=== PATIENT | male | born 1970 ===

== ENCOUNTER 2018-08-27 15:59 | Inpatient (IN) | payer OTHER ==
[2018-08-27] MEDS ORDERED: Nicardipine 20 MG/200 ML 20 MG/200 ML BAG IV PRN (17:52)
[2018-08-27 18:15] LABS: BASO # 0.05 K/mm3 (0.0-2.0); BASO % 0.5 % (0.0-3.0); EOS # 0.3 (0.0-0.7); EOS % 2.7 % (1.5-5.0); HEMOGLOBIN 12.2 g/dL (14.0-18.0); LYMPH # 1.5 (1.2-3.4); LYMPH % 16.3 % (22.0-35.0); MEAN CELL VOLUME 91.7 fl (80.0-105.0); MEAN CORPUSCULAR HGB CONC 31.6 g/dl (31.0-37.0); MEAN PLATELET VOLUME 9.8 fl (7.0-11.0); MONO # 0.4 (0.1-0.6); MONO % 3.8 % (1.0-6.0); RBC 4.21 10^6/uL (3.5-6.1); RED CELL DISTRIBUTION WIDTH 14.7 % (11.5-14.5); WHITE BLOOD COUNT 9.4 10^3/uL (4.5-11.0)
[2018-08-27 18:24] LABS: ALB/GLOB RATIO 1.2 (1.1-1.8); ALBUMIN 3.2 g/dL (3.0-4.8); CALCIUM 8.6 mg/dL (8.4-10.5)
[2018-08-27 18:29] LABS: INR 0.97; PROTHROMBIN TIME 10.8 SECONDS (9.4-12.5)
[2018-08-27 18:32] LABS: TROPONIN I 0.07 ng/mL
[2018-08-27 18:53] LABS: PH,URINE 6.5 (4.7-8.0); URINE BILIRUBIN NEGATIVE (NEGATIVE); URINE BLOOD SMALL (NEGATIVE); URINE GLUCOSE (UA) NEGATIVE (NEGATIVE); URINE LEUKOCYTE ESTERASE NEGATIVE Leu/uL (NEGATIVE); URINE PROTEIN 100 mg/dL (<30 mg/dL); URINE UROBILINOGEN 0.2 E.U./dL (<1 E.U./dL)
[2018-08-27 18:55] LABS: URINE APPEARANCE CLEAR (CLEAR); URINE COLOR YELLOW (YELLOW)
[2018-08-27 19:07] LABS: URINE BACTERIA FEW /hpf
--- NOTE | 2018-08-27 19:19 | ED PDOC ---
Arrival/HPI - General Chief Complaint: Lower Extremity Problem/Injury Time Seen by Provider: 08/27/18 16:39 Historian: Patient - History of Present Illness Narrative History of Present Illness (Text): 08/27/18 16:39 Patient is a 48 year old male, with a past medical history of diabetes, who presents to the emergency department complaining of worsening bilateral feet swelling since 3 to 4 weeks. Patient informs of burning sensation when putting pressure on feet. Patient notes lower extremity swelling up to thighs bilaterally. Patient notes swelling began with development of ingrown great toenail on left foot and bilateral lower extremity ulcers. Patient has no history of previous symptoms. Patient informs of shortness of breath and foreign body sensation in throat when sleeping. Patient also notes secondary complaint o f blurry vision bilaterally, worse in left eye for greater than one month. Patient notes last known A1C level measured one month ago read high but is unsure of exact value. Patient denies any fevers, chills, headache, dizziness, chest pain, dyspnea on exertion, cough, abdominal pain, nausea, vomiting, diarrhea, back pain, neck pain, dysuria, hematuria, dark/bloody stool, or any other complaint. Time/Duration: < month (3-4 weeks) Symptom Onset: Gradual Symptom Course: Worsening Activities at Onset: Light Context: Home Past Medical History - Provider Review Nursing Documentation Reviewed: Yes - Infectious Disease Hx of Infectious Diseases: None - Cardiac Hx Cardiac Disorders: Yes Hx Hypertension: Yes - Pulmonary Hx Asthma: Yes - Neurological Hx Neurological Disorder: No - Endocrine/Metabolic Hx Diabetes Mellitus Type 2: Yes - Hematological/Oncological Hx Blood Disorders: No - Musculoskeletal/Rheumatological Hx Musculoskeletal Disorders: No - Gastrointestinal Hx Gastrointestinal Disorders: No - Psychiatric Hx Substance Use: Yes - Anesthesia Hx Anesthesia Reactions: No Family/Social History - Physician Review Nursing Documentation Reviewed: Yes Family/Social History: Unknown Family HX Smoking Status: Unknown If Ever Smoked Hx Alcohol Use: Yes Frequency of alcohol use: Socially Hx Substance Use: Yes Substance used: marijuana Allergies/Home Meds Allergies/Adverse Reactions: Allergies No Known Allergies Allergy (Verified 08/27/18 17:18) Home Medications: Home Meds Medication Instructions Recorded Confirmed Alogliptin Yuan/Pioglitazone 1 each PO DAILY 08/27/18 08/27/18 [Alogliptin-Pioglit 25-15 mg Tb] Enalapril Maleate [Vasotec] 20 mg PO DAILY 08/27/18 08/27/18 Gabapentin [Neurontin] 600 mg PO TID 08/27/18 08/27/18 Meloxicam 15 mg PO DAILY 08/27/18 08/27/18 MetFORMIN [glucOPHAGE] 1,000 mg PO BID 08/27/18 08/27/18 Review of Systems - Review of Systems Constitutional: absent: Fevers, Other (chills) Eyes: Vision Changes (blurry vision bilaterally worse in left eye ) ENT: Other (foreign body sensation when sleeping) Respiratory: SOB (when sleeping). absent: Cough Cardiovascular: absent: Chest Pain Gastrointestinal: absent: Abdominal Pain, Diarrhea, Nausea, Vomiting, Hematochezia Genitourinary Male: absent: Dysuria, Hematuria Musculoskeletal: Other (bilateral feet swelling, lower extremity swelling up to thigh). absent: Back Pain, Neck Pain Skin: Ulcer (bilateral lower extremity ulcers) Neurological: absent: Headache, Dizziness Physical Exam - Physical Exam Narrative Physical Exam (Text): 08/27/18 16:23 Gen: VS reviewed, ashen/pale appearing. alert, mild distress. ENT: normal pharynx. Eye: EOMI, PERRL. Neck: no JVD, supple, no adenopathy. CV: regular rate, regular rhythm, no rubs, no murmur, no gallops, S1, S2, pulses equal and strong. Pulm: no distress, clear to auscultation, no wheeze, no rhonchi, breath sounds equal, no rales. Abd: soft, nontender, no guarding, no rebound, no rigidity, normal bowel sounds. Ext: pitting edema bilateral lower extremities. Excoriations on legs and feet bilaterally. Left ingrown toenail Skin: good color, no rash, no cyanosis. Psych: responds appropriately to questions, normal affect. Neuro: oriented x 3, CN2-12 intact grossly, motor intact, sensation intact. Vital Signs Reviewed: Yes Vital Signs Temp Pulse Resp BP Pulse Ox 08/27/18 18:19 98 H 18 177/96 H 98 08/27/18 18:18 196/108 H 08/27/18 16:33 98.5 F 101 H 20 201/122 H 98 Temperature: Afebrile Blood Pressure: Hypertensive Pulse: Tachycardic Respiratory Rate: Normal Appearance: Positive for: Non-Toxic, Comfortable, Ill-Appearing (ashen/pale) Pain Distress: None Mental Status: Positive for: Alert and Oriented X 3 Medical Decision Making ED Course and Treatment: 08/27/18 18:25 Bloop pressure reads 177/96 after dose of lasix. Will cancel cardene drip. 08/27/18 19:[address] ware to the hospitalist service. pt to be admitted for new onset chf, no respiratory distress but will require diuresis. - Lab Interpretations Lab Results: PT 10.8 SECONDS (9.4-12.5) 08/27/18 17:55 INR 0.97 08/27/18 17:55 APTT 33.0 Seconds (26.9-38.3) 08/27/18 17:55 Troponin I 0.07 ng/mL 08/27/18 17:55 NT-Pro-B Natriuret Pep 5460 pg/mL (0-450) H 08/27/18 17:55 Total Bilirubin 0.4 mg/dL (0.2-1.3) 08/27/18 17:55 AST 73 U/L (17-59) H 08/27/18 17:55 ALT 57 U/L (7-56) H 08/27/18 17:55 Alkaline Phosphatase 75 U/L (38-126) 08/27/18 17:55 Total Protein 5.9 g/dL (5.8-8.3) 08/27/18 17:55 Albumin 3.2 g/dL (3.0-4.8) 08/27/18 17:55 Globulin 2.7 gm/dL 08/27/18 17:55 Albumin/Globulin Ratio 1.2 (1.1-1.8) 08/27/18 17:55 Urine Color Yellow (YELLOW) 08/27/18 18:40 Urine Appearance Clear (CLEAR) 08/27/18 18:40 Urine pH 6.5 (4.7-8.0) 08/27/18 18:40 Ur Specific [place] 1.025 (1.005-1.035) 08/27/18 18:40 Urine Protein 100 mg/dL (<30 mg/dL) H 08/27/18 18:40 Urine Glucose (UA) Negative mg/dL (NEGATIVE) 08/27/18 18:40 Urine Ketones Negative mg/dL (NEGATIVE) 08/27/18 18:40 Urine Blood Small (NEGATIVE) H 08/27/18 18:40 Urine Nitrate Negative (NEGATIVE) 08/27/18 18:40 Urine Bilirubin Negative (NEGATIVE) 08/27/18 18:40 Urine Urobilinogen 0.2 E.U./dL (<1 E.U./dL) 08/27/18 18:40 Ur Leukocyte Esterase Negative Anant/uL (NEGATIVE) 08/27/18 18:40 - RAD Interpretation Narrative RAD Interpretations (Text): 08/27/18 19:10 Spoke to [id number] preliminary US negative for bilateral lower extremity DVT. Radiology Orders: 08/27/18 17:52 CHEST PORTABLE [RAD] Stat 08/27/18 17:54 DUPLEX LOWER EXTRM VEIN BILAT [US] Stat - EKG Interpretation EKG Interpretation (Text): 08/27/18 18:12 Reviewed EKG, shows: NSR at 98 BPM. Normal QRS. Prolonged QT. Low Voltage. Poor R wave progression. Interpreted by ED Physician: Yes Type: 12 lead EKG - Medication Orders Current Medication Orders: Discontinued Medications Furosemide (Lasix) 60 mg IVP STAT STA Stop: 08/27/18 17:58 Last Admin: 08/27/18 18:18 Dose: 60 mg MAR Blood Pressure Document 08/27/18 18:18 SS (Rec: 08/27/18 18:19 SS [id number]) Blood Pressure Blood Pressure (100/60-150/90) 196/108 IVP Administration Document 08/27/18 18:18 SS (Rec: 08/27/18 18:19 SS [id number]) Charges for Administration # of IVP Administrations 1 - Scribe Statement The provider has reviewed the documentation as recorded by the Scribe Stuart Mendoza All medical record entries made by the Scribe were at my direction and personally dictated by me. I have reviewed the chart and agree that the record accurately reflects my personal performance of the history, physical exam, medical decision making, and the department course for this patient. I have also personally directed, reviewed, and agree with the discharge instructions and disposition. Disposition/Present on Arrival - Present on Arrival Any Indicators Present on Arrival: No History of DVT/PE: No History of Uncontrolled Diabetes: No Urinary Catheter: No History of Decub. Ulcer: No History Surgical Site Infection Following: None - Disposition Have Diagnosis and Disposition been Completed?: Yes Diagnosis: CHF (congestive heart failure) Disposition: HOSPITALIZED Disposition Time: 19:41 Patient Plan: Admission Patient Problems: Current Active Problems Problem Status Onset Diabetic neuropathy Acute Diabetes mellitus Acute Hypertension Acute Condition: GUARDED Discharge Instructions (ExitCare): Heart Failure (ED) Forms: [facility] (Lao)
[2018-08-27] MEDS ORDERED: Labetalol 5 mg/ml Inj 20ML IV STA (20:47)
[2018-08-27] MEDS ORDERED: Dextrose 50% SYRINGE Inj (50 ml) IV PRN (22:07)
--- NOTE | 2018-08-27 22:33 | CP.PCM.HP ---
<ZoltanLamonte - Last Filed: 08/28/18 00:05> History of Present Illness - History of Present Illness History of Present Illness: PGY-1 History and Physical for Dr. Serna cc: worsening leg edema, sob Patient is a 48 year old male with past medical history of uncontrolled DM, HTN, asthma presenting to ED with worsening b/l lower extremity edema for the past 3-4 weeks with associated numbness, tingling, and burning sensation. He comes in now for evaluation because burning sensation and swelling has been too much to tolerate. He also endorses pruritis to his anterior shins bilaterial, with multiple excoriations/ulcerations noted to his lower limbs. Patient admits to increased scratching due to itching, also states some findings are due to easy bruising. Patient also endorses intermittent blurry vision and polyuria. He denies checking his blood sugar levels at home but states that they were elevated the last time he went to see his doctor a few months ago. Patient also endorses shortness of breath with exertion, particularly when climbing up flights of stairs, as well as orthopnea. He denies ever seeing a seed cleaning manager or having a cardiologic workup. No fevers/chills, headaches, dizziness, chest pain, palpitations, abdominal pain, n/v/d/c, dysuria, or changes in stool. 12 pt ROS reviewed and otherwise negative. PMHx: uncontrolled DM, HTN, asthma PSHx: denies Allergies: NKDA Home Meds: reviewed Family Hx: Father--"heart conditions", , Mother--breast cancer, Social Hx: social drinker, + tobacco--1 ppd since age 13, admits to marijuana but no other illicit drug use Present on Admission - Present on Admission Any Indicators Present on Admission: Yes History of Uncontrolled Diabetes: Yes Review of Systems - Review of Systems All systems: reviewed and no additional remarkable complaints except Review of Systems: as per HPI Past Patient History - Infectious Disease Hx of Infectious Diseases: None - Past Social History Smoking Status: Unknown If Ever Smoked - CARDIAC Hx Cardiac Disorders: Yes Hx Hypertension: Yes - PULMONARY Hx Asthma: Yes - NEUROLOGICAL Hx Neurological Disorder: No - ENDOCRINE/METABOLIC Hx Diabetes Mellitus Type 2: Yes - HEMATOLOGICAL/ONCOLOGICAL Hx Blood Disorders: No - MUSCULOSKELETAL/RHEUMATOLOGICAL Hx Musculoskeletal Disorders: No - GASTROINTESTINAL Hx Gastrointestinal Disorders: No - PSYCHIATRIC Hx Substance Use: Yes - ANESTHESIA Hx Anesthesia Reactions: No Meds Allergies/Adverse Reactions: Allergies Allergy/AdvReac Type Severity Reaction Status Date / Time No Known Allergies Allergy Verified 08/27/18 17:18 Physical Exam - Constitutional Appears: Non-toxic, No Acute Distress - Head Exam Head Exam: ATRAUMATIC, NORMAL INSPECTION, NORMOCEPHALIC - Eye Exam Eye Exam: EOMI, Normal appearance, PERRL. absent: Scleral icterus Pupil Exam: NORMAL ACCOMODATION - ENT Exam ENT Exam: Mucous Membranes Moist, Normal Exam - Neck Exam Neck exam: Positive for: Full Rom, Normal Inspection - Respiratory Exam Respiratory Exam: Clear to Auscultation Bilateral, NORMAL BREATHING PATTERN. absent: Accessory Muscle Use, Rales, Rhonchi, Wheezes, Respiratory Distress, Stridor - Cardiovascular Exam Cardiovascular Exam: Tachycardia, +S1, +S2 - GI/Abdominal Exam GI & Abdominal Exam: Distended, Normal Bowel Sounds, Soft, Tenderness (mild TTP RUQ). absent: Firm, Guarding, Rebound, Rigid Additional comments: some suprapubic/lower abdominal fullness noted. Mildly TTP - Extremities Exam Extremities exam: Positive for: normal capillary refill, pedal edema (b/l pitting edema), pedal pulses present. Negative for: calf tenderness Additional comments: multiple excoriations to b/l LE, prominently b/l anterior tibia L ingrown toenail - Back Exam Back exam: NORMAL INSPECTION - Neurological Exam Neurological exam: Alert, CN II-XII Intact, Oriented x3 - Skin Skin Exam: Dry, Intact, Normal Color, Warm Additional comments: findings as noted above Results - Vital Signs Recent Vital Signs: Last Vital Signs Temp 98.5 F 08/27/18 16:33 Pulse 90 08/27/18 21:30 Resp 18 08/27/18 21:30 BP 161/100 H 08/27/18 21:30 Pulse Ox 98 08/27/18 21:30 - Labs Result Diagrams: 08/27/18 17:55 08/27/18 17:55 Labs: Laboratory Results - last 24 hr 08/27/18 08/27/18 08/27/18 17:08 17:55 17:55 WBC RBC Hgb Hct MCV MCH MCHC RDW Plt Count MPV Neut % (Auto) Lymph % (Auto) [place] % (Auto) Eos % (Auto) Baso % (Auto) Lymph # (Auto) [place] # (Auto) Eos # (Auto) Baso # (Auto) Absolute Neuts (auto) PT INR APTT Sodium 140 Potassium 4.3 Chloride 105 Carbon Dioxide 30 Anion Gap 9 L BUN 22 H Creatinine 2.1 H Est GFR ( Amer) 41 Est GFR (Non-Af Amer) 34 POC Glucose (mg/dL) 203 H Random Glucose 132 H Calcium 8.6 Phosphorus 3.9 Magnesium 1.8 Total Bilirubin 0.4 AST 73 H ALT 57 H Alkaline Phosphatase 75 Total Creatine Kinase 184 Troponin I 0.07 NT-Pro-B Natriuret Pep 5460 H Total Protein 5.9 Albumin 3.2 Globulin 2.7 Albumin/Globulin Ratio 1.2 TSH 3rd Generation 1.29 Urine Color Urine Appearance Urine pH Ur Specific Vian Urine Protein Urine Glucose (UA) Urine Ketones Urine Blood Urine Nitrate Urine Bilirubin Urine Urobilinogen Ur Leukocyte Esterase Urine RBC Urine WBC Ur Epithelial Cells Urine Bacteria Alcohol, Quantitative < 10 Blood Type Antibody Screen BBK History Checked 08/27/18 08/27/18 08/27/18 17:55 17:55 18:31 WBC 9.4 RBC 4.21 Hgb 12.2 L Hct 38.6 L MCV 91.7 MCH 29.0 MCHC 31.6 RDW 14.7 H Plt Count 329 MPV 9.8 Neut % (Auto) 76.7 H Lymph % (Auto) 16.3 L [place] % (Auto) 3.8 Eos % (Auto) 2.7 Baso % (Auto) 0.5 Lymph # (Auto) 1.5 [place] # (Auto) 0.4 Eos # (Auto) 0.3 Baso # (Auto) 0.05 Absolute Neuts (auto) 7.19 H PT 10.8 INR 0.97 APTT 33.0 Sodium Potassium Chloride Carbon Dioxide Anion Gap BUN Creatinine Est GFR ( Amer) Est GFR (Non-Af Amer) POC Glucose (mg/dL) Random Glucose Calcium Phosphorus Magnesium Total Bilirubin AST ALT Alkaline Phosphatase Total Creatine Kinase Troponin I NT-Pro-B Natriuret Pep Total Protein Albumin Globulin Albumin/Globulin Ratio TSH 3rd Generation Urine Color Urine Appearance Urine pH Ur Specific Vian Urine Protein Urine Glucose (UA) Urine Ketones Urine Blood Urine Nitrate Urine Bilirubin Urine Urobilinogen Ur Leukocyte Esterase Urine RBC Urine WBC Ur Epithelial Cells Urine Bacteria Alcohol, Quantitative Blood Type O POSITIVE Antibody Screen Positive BBK History Checked No verified bt 08/27/18 18:40 WBC RBC Hgb Hct MCV MCH MCHC RDW Plt Count MPV Neut % (Auto) Lymph % (Auto) [place] % (Auto) Eos % (Auto) Baso % (Auto) Lymph # (Auto) [place] # (Auto) Eos # (Auto) Baso # (Auto) Absolute Neuts (auto) PT INR APTT Sodium Potassium Chloride Carbon Dioxide Anion Gap BUN Creatinine Est GFR ( Amer) Est GFR (Non-Af Amer) POC Glucose (mg/dL) Random Glucose Calcium Phosphorus Magnesium Total Bilirubin AST ALT Alkaline Phosphatase Total Creatine Kinase Troponin I NT-Pro-B Natriuret Pep Total Protein Albumin Globulin Albumin/Globulin Ratio TSH 3rd Generation Urine Color Yellow Urine Appearance Clear Urine pH 6.5 Ur Specific Vian 1.025 Urine Protein 100 H Urine Glucose (UA) Negative Urine Ketones Negative Urine Blood Small H Urine Nitrate Negative Urine Bilirubin Negative Urine Urobilinogen 0.2 Ur Leukocyte Esterase Negative Urine RBC 2 - 5 H Urine WBC 5 - 10 H Ur Epithelial Cells 3 - 4 Urine Bacteria Few Alcohol, Quantitative Blood Type Antibody Screen BBK History Checked Assessment & Plan - Assessment and Plan (Free Text) Assessment: 48 year old male with pmhx of uncontrolled DM, HTN, asthma presenting with worsening b/l LE pitting edema, numbness/tingling, CABELLO, orthopnea. Plan: Leg edema, dyspnea -likely 2/2 underlying CHF -BNP 5460 on admission -daily weights -strict fluid intake -I/Os -keep head of bed elevated -low sodium diet -Lasix 20 mg IVP daily -ECHO -Cardiology (Dr. Velez) consulted Uncontrolled DM -BG 203 on admission -home meds held -A1C -ISS medium -accuchecks achs -hypoglycemic protocol Neuropathy -resume home gabapentin 600 mg PO TID Elevated creatinine -BUN/Cr on admission: 22/2.1 -baseline Cr value unknown -possibly 2/2 diabetic nephropathy vs hypertensive nephropathy -UA: few bacteria, 5-10 WBC, small blood, 100 protein -f/u urine culture -urine lytes -renal u/s -bladder scan Transaminitis -AST/ALT: 73/57 -hepatitis panel -HIV -abdominal u/s Excoriations -lac hydrin topical Hx of HTN -c/w home lisinopril 20 mg PO daily PPx, Diet, Disposition -DVT ppx: scds, heparin 5000 units sc q8 -GI ppx: protonix 40 mg IVP daily -Diet: HHD, low Na -PT on board Case discussed with Dr. Daphne Charlton DO, PGY-1 <Tracie Serna - Last Filed: 08/28/18 19:24> Results - Vital Signs Recent Vital Signs: Last Vital Signs Temp 98.6 F 08/28/18 18:00 Pulse 97 H 08/28/18 18:00 Resp 19 08/28/18 18:00 BP 183/107 H 08/28/18 18:00 Pulse Ox 95 08/28/18 18:00 - Labs Result Diagrams: 08/27/18 17:55 08/27/18 17:55 Labs: Laboratory Results - last 24 hr 08/27/18 08/27/18 08/27/18 17:08 18:31 20:00 POC Glucose (mg/dL) 203 H Hemoglobin A1c 7.7 H Ur Random Sodium Ur Random Potassium Urine Opiates Screen Urine Methadone Screen Ur Barbiturates Screen Ur Phencyclidine Scrn Ur Amphetamines Screen U Benzodiazepines Scrn U Oth Cocaine Metabols U Cannabinoids Screen Blood Type O POSITIVE Antibody Screen Negative Antibody Identification Negative Panel LACI, Poly Interpret Negative BBK History Checked No verified bt 08/27/18 08/28/18 08/28/18 23:42 04:10 08:01 POC Glucose (mg/dL) 158 H 162 H Hemoglobin A1c Ur Random Sodium 139 Ur Random Potassium 17.3 Urine Opiates Screen Negative Urine Methadone Screen Negative Ur Barbiturates Screen Negative Ur Phencyclidine Scrn Negative Ur Amphetamines Screen Negative U Benzodiazepines Scrn Negative U Oth Cocaine Metabols Positive H U Cannabinoids Screen Negative Blood Type Antibody Screen Antibody Identification LACI, Poly Interpret BBK History Checked 08/28/18 11:35 POC Glucose (mg/dL) 180 H Hemoglobin A1c Ur Random Sodium Ur Random Potassium Urine Opiates Screen Urine Methadone Screen Ur Barbiturates Screen Ur Phencyclidine Scrn Ur Amphetamines Screen U Benzodiazepines Scrn U Oth Cocaine Metabols U Cannabinoids Screen Blood Type Antibody Screen Antibody Identification LACI, Poly Interpret BBK History Checked Attending/Attestation - Attestation I have personally seen and examined this patient.: Yes I have fully participated in the care of the patient.: Yes I have reviewed all pertinent clinical information: Yes Notes (Text): 08/28/18 19:23 Seen and examined. Discussed with resident. A&P as above Pt. appears noncompliant new onset CHF Uncontrolled HTN YISSEL possibly on CKD Abdominal pain Blurry vision in L eye >>> R eye: F/U ophthalmology as O/P.
--- NOTE | 2018-08-27 22:41 | CARD ---
APPROVED REPORT Date of service: 08/27/2018 EKG Measurement Heart [id number] [place] 150P54 [id number] <Conclusion> Normal sinus rhythm Possible Left atrial enlargement NDSTT abnormalities Prolonged QT Abnormal ECG
[2018-08-28 05:48] LABS: BARBITURATES, UR NEGATIVE (NEGATIVE); BENZODIAZEPINES, UR NEGATIVE (NEGATIVE); OPIATES, UR NEGATIVE (NEGATIVE); PHENCYCLIDINE, UR NEGATIVE (NEGATIVE)
--- NOTE | 2018-08-28 09:09 | US ---
HISTORY: Leg pain and swelling. Evaluate for DVT PHYSICIAN(S): Sunday Li MD. TECHNIQUE: Duplex sonography and color-flow Doppler with graded compression were used to evaluate the deep venous systems of both lower extremities. FINDINGS: The visualized deep venous systems of both lower extremities are sonographically normal and compressible. Normal wave forms and augmentation are seen. There is no sonographic evidence for deep venous thrombosis in the visualized segments of both lower extremities. IMPRESSION: No sonographic evidence for deep venous thrombosis in the visualized segments of both lower extremities.
--- NOTE | 2018-08-28 09:24 | CARD ---
APPROVED REPORT Date of service: 08/28/2018 EKG Measurement Heart [id number] 166P51 [id number] <Conclusion> Normal sinus rhythm Septal infarct, age undetermined Abnormal ECG
[2018-08-28] MEDS: Insulin Regular 1 UNITS/0.01 ML ML SC SCH ×4 (09:38→21:18)
[2018-08-28] MEDS: Ammonium Lactate 12% Cream (140 g) TOP SCH ×2 (10:24→21:45)
[2018-08-28] MEDS ORDERED: Primacor 1 mg/ml Inj (10 ml) IVP ONE (10:36)
--- NOTE | 2018-08-28 10:57 | CON ---
DATE OF CONSULTATION: 08/28/2018 CARDIOLOGY CONSULTATION HISTORY: The patient is a 48-year-old male, who suffers from longstanding diabetes mellitus as well as hypertension, who was treated with enalapril at home, presents with progressive pedal edema bilaterally. He denies chest pain. No shortness of breath noted. He denies previous cardiac history. SOCIAL HISTORY: He is an active smoker and was found to have cocaine in his urine. REVIEW OF SYSTEMS: Fourteen-point review of systems is reviewed in detail. Negative angina and a positive exertional shortness of breath. Positive pedal edema. Negative nocturia. Mild orthopnea. PHYSICAL EXAMINATION: VITAL SIGNS: Blood pressure 137/68, heart rate is in the 90s. NECK: Negative JVD. LUNGS: Decreased breath sounds bilaterally. HEART: Reveals S1, S2. EXTREMITIES: 2+ edema bilaterally. EKG shows low voltages. LABORATORY DATA: Hemoglobin is 12.2. Chemistries, BUN and creatinine are 22 and 2.1 with a glucose of 132, proBNP is greater than 5000. Troponin is 0.07. Preliminary echocardiogram revealed an ejection fraction of 35% with mitral regurgitation and tricuspid regurgitation. IMPRESSION: 1. Dilated cardiomyopathy. 2. Mild systolic congestive heart failure. 3. Pedal edema. 4. Diabetes mellitus. 5. Renal insufficiency. 6. Hypertension. 7. Indeterminate elevated troponins. 8. Chronic obstructive pulmonary disease. PLAN: Given these findings, I have discussed with the patient about his need to stop smoking and change his diet. His cocaine use will need to be curtailed. We will start the patient on Lasix twice a day as well as IV milrinone. Sunday Velez MD
[2018-08-28] MEDS: Milrinone 20mg/100ml D5W 100 ML IV SCH (11:04)
--- NOTE | 2018-08-28 11:30 | US ---
Date of service: 08/28/2018 HISTORY: transaminitis, ckd, please look at kidneys as well COMPARISON: None. TECHNIQUE: Sonographic evaluation of the abdomen. FINDINGS: LIVER: Measures 19.8 cm. Patent portal and hepatic venous systems. Portal venous flow: Hepatopetal. echogenicity of the liver parenchyma. No mass. No intrahepatic bile duct dilatation. GALLBLADDER: Gallbladder wall thickening, findings suggests adenomyomatosis. No gallstones identified. COMMON BILE DUCT: Measures 5.9 mm. No stones. No dilatation. PANCREAS: Unremarkable as visualized. No mass. No ductal dilatation. RIGHT KIDNEY: Measures 5.3 x 11.2cm. Normal echogenicity. No calculus, mass, or hydronephrosis. LEFT KIDNEY: Measures 6.4 x 11.5cm. Normal echogenicity. No calculus, mass, or hydronephrosis. SPLEEN: Normal in size and contour. No mass. AORTA: No aneurysmal dilatation. IVC: Unremarkable. OTHER FINDINGS: None. IMPRESSION: No significant or acute findings to account for/ related to the clinical presentation. Additional benign and/or incidental findings described above.
--- NOTE | 2018-08-28 12:13 | RAD ---
Date of service: 08/27/2018 HISTORY: chf COMPARISON: No prior. TECHNIQUE: 1 view obtained. FINDINGS: LUNGS: No active pulmonary disease. PLEURA: No significant pleural effusion identified, no pneumothorax apparent. CARDIOVASCULAR: No aortic atherosclerotic calcification present. Moderate cardiomegaly. Mild vascular congestion OSSEOUS STRUCTURES: No significant abnormalities. VISUALIZED UPPER ABDOMEN: Normal. OTHER FINDINGS: None. IMPRESSION: Moderate cardiomegaly and mild vascular congestion
--- NOTE | 2018-08-28 23:09 | CARD ---
APPROVED REPORT Date of service: 08/28/2018 EXAM: Two-dimensional and M-mode echocardiogram with Doppler and color Doppler. INDICATION Congestive Heart Failure 2D DIMENSIONS Left Atrium (2D)4.3 (1.6-4.0cm)IVSd1.7 (0.7-1.1cm) LVDd5.3 (3.9-5.9cm)PWd1.5 (0.7-1.1cm) LVDs4.2 (2.5-4.0cm)FS (%) 16.9 % LVEF (%)35.0 (>50%) M-Mode DIMENSIONS Aortic Root3.10 (2.2-3.7cm)Aortic Cusp Exc.2.00 (1.5-2.0cm) Aortic Valve AoV Peak Bkcgnalt926.0cm/Earnest Peak GR.7mmHg Mitral Valve E/A ratio0.0 TDI E/Lateral E'0.0E/Medial E'0.0 Tricuspid Valve TR Peak [id number] [id number] Peak Gr.13mmHg [id number] LEFT VENTRICLE The left ventricle is normal size. There is moderate to severe concentric left ventricular hypertrophy. The systolic function is severely impaired. There is global hypokinesis of the left ventricle. No left ventricle thrombus noted on this study. RIGHT VENTRICLE The right ventricle is moderately dilated. RV Systolic function is severely reduced. ATRIA The left atrium is mildly dilated. The right atrium is mildly dilated. AORTIC VALVE The aortic valve is normal in structure. No aortic regurgitation is present. There is no aortic valvular stenosis. MITRAL VALVE The mitral valve is mildly thickened. Mitral regurgitation is mild to moderate. There is no mitral valve stenosis. TRICUSPID VALVE There is mild tricuspid regurgitation. GREAT VESSELS The aortic root is normal in size. The IVC is normal in size and collapses >50% with inspiration. PERICARDIAL EFFUSION There is a small pericardial effusion. <Conclusion> The left ventricle is normal size. There is moderate to severe concentric left ventricular hypertrophy. The systolic function is severely impaired. There is global hypokinesis of the left ventricle. No left ventricle thrombus noted on this study. RV Systolic function is severely reduced. Mitral regurgitation is mild to moderate. There is mild tricuspid regurgitation. There is a small pericardial effusion.
[2018-08-29] MEDS: Milrinone 20mg/100ml D5W 100 ML IV SCH ×2 (06:31→11:29)
[2018-08-29 06:53] LABS: BASO # 0.07 K/mm3 (0.0-2.0); BASO % 0.7 % (0.0-3.0); EOS # 0.5 (0.0-0.7); EOS % 4.7 % (1.5-5.0); HEMOGLOBIN 13.4 g/dL (14.0-18.0); LYMPH # 1.8 (1.2-3.4); LYMPH % 16.6 % (22.0-35.0); MEAN CELL VOLUME 89.7 fl (80.0-105.0); MEAN CORPUSCULAR HEMOGLOBIN 28.6 pg (25.0-35.0); MEAN CORPUSCULAR HGB CONC 31.9 g/dl (31.0-37.0); MEAN PLATELET VOLUME 10.2 fl (7.0-11.0); MONO # 0.5 (0.1-0.6); MONO % 4.4 % (1.0-6.0); RBC 4.68 10^6/uL (3.5-6.1); RED CELL DISTRIBUTION WIDTH 14.4 % (11.5-14.5); WHITE BLOOD COUNT 10.7 10^3/uL (4.5-11.0)
[2018-08-29 07:29] LABS: ALB/GLOB RATIO 1.1 (1.1-1.8); ALBUMIN 3.4 g/dL (3.0-4.8); CALCIUM 8.6 mg/dL (8.4-10.5)
[2018-08-29] MEDS: Pantoprazole 40 mg EC Tab PO SCH (08:08)
[2018-08-29] MEDS: Insulin Regular 1 UNITS/0.01 ML ML SC SCH ×4 (08:08→21:56)
[2018-08-29 09:09] LABS: CREATININE,RANDOM URINE 29 mg/dL
[2018-08-29 09:26] LABS: HDL CHOLESTEROL 31 mg/dL (29-60)
[2018-08-29] MEDS ORDERED: Magnesium Citrate Oral SOL (300 ml) PO ONE (09:32)
[2018-08-29 09:37] LABS: LDL CHOLESTEROL 113 mg/dL (0-129)
[2018-08-29] MEDS ORDERED: cefTRIAXone 1 gm 1 GM/100 ML BAG IVPB STA (10:39)
[2018-08-29] MEDS: Ammonium Lactate 12% Cream (140 g) TOP SCH ×2 (11:28→21:57)
--- NOTE | 2018-08-29 13:35 | PN ---
DATE: 08/29/2018 SUBJECTIVE: The patient's breathing is better. He is ambulating without dyspnea, on IV milrinone. PHYSICAL EXAMINATION: VITAL SIGNS: Blood pressure is 134/87, heart rate is in the 70s. NECK: Negative JVD. LUNGS: Without rales. HEART: S1, S2. EXTREMITIES: Edema is still present but decreased. LABORATORY DATA: Hemoglobin is 13.4, BUN and creatinine is 28 and 2.2 with a potassium of 3.9. IMPRESSION: 1. Chronic pedal edema. 2. Resolution of systolic congestive heart failure. 3. Chronic obstructive pulmonary disease. 4. Diabetes mellitus. 5. Renal insufficiency. 6. Dilated cardiomyopathy. PLAN: Given these findings, we will add LUCAS stockings to the patient's regimen. We will continue the IV milrinone for the next 24 hours. Sunday Velez MD
--- NOTE | 2018-08-29 13:45 | CP.PCM.PN ---
<Nelia Parr - Last Filed: 08/29/18 13:22> Subjective - Date & Time of Evaluation Date of Evaluation: 08/29/18 Time of Evaluation: 11:00 - Subjective Subjective: INTERNAL MEDICINE PROGRESS NOTE FOR DR. DEANNA Parr PGY1 Pt seen and examined at bedside this am. No acute events overnight. Pt reports improvement in LLE swelling. Objective - Vital Signs/Intake and Output Vital Signs (last 24 hours): Temp Pulse Resp BP Pulse Ox 98.1 F 78 18 169/97 H 95 08/29/18 06:00 08/29/18 06:31 08/29/18 06:00 08/29/18 09:44 08/29/18 06:00 Intake and Output: 08/29/18 08/29/18 06:59 18:59 Intake Total 1674 Output Total 720 Balance 954 - Medications Medications: Current Medications Aspirin (Aspirin Chewable) 81 mg PO DAILY [facility] Last Admin: 08/29/18 09:45 Dose: 81 mg Dextrose (Dextrose 50% Inj) 0 ml IV STAT PRN; Protocol PRN Reason: Hypoglycemia Protocol Furosemide (Lasix) 40 mg IVP BID [facility] Last Admin: 08/29/18 09:44 Dose: 40 mg Gabapentin (Neurontin) 600 mg PO TID [facility]; Protocol Last Admin: 08/29/18 09:45 Dose: 600 mg Heparin Sodium (Porcine) (Heparin) 5,000 units SC Q8 [facility]; Protocol Last Admin: 08/29/18 05:35 Dose: Not Given Dextrose (Dextrose 5% In Water 1000 Ml) 1,000 mls @ 0 mls/hr IV .Q0M PRN; Protocol PRN Reason: Hypoglycemia Protocol Milrinone Lactate/Dextrose (Primacor 20mg/100ml D5w) 100 mls @ 4.3 mls/hr IV .[id number] [facility]; Protocol Last Admin: 08/29/18 11:29 Dose: Not Given Insulin Human Regular (Humulin R) 0 units SC ACHS [facility]; Protocol Last Admin: 08/29/18 08:08 Dose: 5 unit Lactic Acid (Lac-Hydrin 12% Cream (140 G)) 0 ea TOP Q12 [facility] Last Admin: 08/29/18 11:28 Dose: 1 applic Lisinopril (Zestril) 20 mg PO DAILY [facility] Pantoprazole Sodium (Protonix Ec Tab) 40 mg PO ACB [facility] Last Admin: 08/29/18 08:08 Dose: 40 mg - Labs Labs: 08/29/18 06:10 08/29/18 06:10 PT 10.8 SECONDS (9.4-12.5) 08/27/18 17:55 INR 0.97 08/27/18 17:55 APTT 33.0 Seconds (26.9-38.3) 08/27/18 17:55 - Constitutional Appears: Non-toxic, No Acute Distress - Head Exam Head Exam: ATRAUMATIC, NORMAL INSPECTION, NORMOCEPHALIC - Eye Exam Eye Exam: EOMI, Normal appearance, PERRL. absent: Scleral icterus Pupil Exam: NORMAL ACCOMODATION - ENT Exam ENT Exam: Mucous Membranes Moist, Normal Exam - Neck Exam Neck exam: Positive for: Full Rom, Normal Inspection - Respiratory Exam Respiratory Exam: Clear to Auscultation Bilateral, NORMAL BREATHING PATTERN. absent: Accessory Muscle Use, Rales, Rhonchi, Wheezes, Respiratory Distress, Stridor - Cardiovascular Exam Cardiovascular Exam: Tachycardia, +S1, +S2 - GI/Abdominal Exam GI & Abdominal Exam: Distended, Normal Bowel Sounds, Soft, Tenderness (mild TTP RUQ). absent: Firm, Guarding, Rebound, Rigid Additional comments: some suprapubic/lower abdominal fullness noted. Mildly TTP - Extremities Exam Extremities exam: Positive for: normal capillary refill, pedal edema (b/l pitting edema), pedal pulses present. Negative for: calf tenderness Additional comments: multiple excoriations to b/l LE, prominently b/l anterior tibia L ingrown toenail - Back Exam Back exam: NORMAL INSPECTION - Neurological Exam Neurological exam: Alert, CN II-XII Intact, Oriented x3 - Skin Skin Exam: Dry, Intact, Normal Color, Warm Additional comments: findings as noted above Assessment and Plan - Assessment and Plan (Free Text) Assessment: 48 y/o M with PMH of uncontrolled DM2, HTN, asthma, cocaine abuse presents to ED with complaints of b/l LE edema, ulceration, orthopnea & CABELLO Plan: Acute HFrEF Echo 08/28/18 reveals global hypokinesis of LV with LVEF 35%. RV systolic function severely reduced. small pericardial effusion continue lasix 40 IVP bid continue milrinone drip per cardiology recs LUCAS stockings for LE edema strict I/Os Daily weight Cardiology recs appreciated Acute Kidney Injury No baseline Cr available FeNa 7.5% indicating post renal obstruction. 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 upon discharge LLE ulcers administer 1x dose rocephin podiatry consulted, appreciate recs Cocaine abuse counselled on cessation avoid b-blockers currently DVT/GI ppx: Hep/protonix po Case reviewed with attending physician, Dr Deanna Parr PGY1 <Niida Aponte - Last Filed: 08/29/18 15:14> Objective - Vital Signs/Intake and Output Vital Signs (last 24 hours): Temp Pulse Resp BP Pulse Ox 97.6 F 96 H 19 184/114 H 95 08/29/18 12:00 08/29/18 12:00 08/29/18 12:00 08/29/18 12:00 08/29/18 06:00 Intake and Output: 08/29/18 08/29/18 06:59 18:59 Intake Total 1674 Output Total 720 Balance 954 - Medications Medications: Current Medications Aspirin (Aspirin Chewable) 81 mg PO DAILY [facility] Last Admin: 08/29/18 09:45 Dose: 81 mg Carvedilol (Coreg) 12.5 mg PO BID [facility] Dextrose (Dextrose 50% Inj) 0 ml IV STAT PRN; Protocol PRN Reason: Hypoglycemia Protocol Furosemide (Lasix) 40 mg IVP BID [facility] Last Admin: 08/29/18 09:44 Dose: 40 mg Gabapentin (Neurontin) 600 mg PO TID [facility]; Protocol Last Admin: 08/29/18 13:51 Dose: 600 mg Heparin Sodium (Porcine) (Heparin) 5,000 units SC Q8 [facility]; Protocol Last Admin: 08/29/18 13:50 Dose: 5,000 units Dextrose (Dextrose 5% In Water 1000 Ml) 1,000 mls @ 0 mls/hr IV .Q0M PRN; Protocol PRN Reason: Hypoglycemia Protocol Milrinone Lactate/Dextrose (Primacor 20mg/100ml D5w) 100 mls @ 4.3 mls/hr IV .[id number] FORTUNATO; Protocol Last Admin: 08/29/18 11:29 Dose: Not Given Insulin Human Regular (Humulin R) 0 units SC ACHS [facility]; Protocol Last Admin: 08/29/18 13:51 Dose: Not Given Lactic Acid (Lac-Hydrin 12% Cream (140 G)) 0 ea TOP Q12 [facility] Last Admin: 08/29/18 11:28 Dose: 1 applic Lisinopril (Zestril) 20 mg PO DAILY [facility] Pantoprazole Sodium (Protonix Ec Tab) 40 mg PO ACB [facility] Last Admin: 08/29/18 08:08 Dose: 40 mg - Labs Labs: 08/29/18 06:10 08/29/18 06:10 PT 10.8 SECONDS (9.4-12.5) 08/27/18 17:55 INR 0.97 08/27/18 17:55 APTT 33.0 Seconds (26.9-38.3) 08/27/18 17:55 Attending/Attestation - Attestation I have personally seen and examined this patient.: Yes I have fully participated in the care of the patient.: Yes I have reviewed all pertinent clinical information, including history, physical exam and plan: Yes Notes (Text): 08/29/18 15:06 Attending note; Patient seen and examined with resident. Patient is alert and awake. Denies any fevers, chills. Leg swelling is improving slowly Shortness of breath is improving. Patient is urinating adequately. Currently on a milrinone drip. Patient is a 48-year-old male with PMH of uncontrolled DM2, HTN, asthma, cocaine abuse presents to ED with complaints of b/l LE edema, ulceration, dyspnea on exertion. 1. Acute systolic congestive heart failure; patient is currently on IV Lasix. On IV milrinone drip. Cardiology evaluation appreciated. Urine output is improving. Monitor daily weight. 2. Cardiomyopathy; ejection fraction is 35%. Continue aspirin, Coreg. 3. acute Renal insufficiency; baseline creatinine not known. 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 Nephrology Evaluation requested. Needs close follow-up with nephrology as outpatient. 4. Active smoking; smoking cessation is strongly advised . 5. Alcohol abuse; alcohol cessation is strongly advised . 6. Active cocaine abuse; drug abuse cessation is strongly advised. 7. Lower extremity edema; Secondary to CHF. Patient also has multiple diabetic skin lesions. Podiatry evaluation requested. IV Rocephin ordered. 8. diabetes; continue regular insulin sliding scale. Metformin on hold. Dietary education given . Diabetic nurse education given. Continue to monitor closely on telemetry. Upon discharge the patient needs close follow-up with PMD and cardiology. Patient also needs nephrology follow-up. Diagnosis, follow-up plan discussed with patient in detail. Medication compliance Insisted in detail. 08/29/18 15:13
[2018-08-29] MEDS ORDERED: Labetalol 5mg/ml (4ml) IV STA (18:42)
--- NOTE | 2018-08-29 19:38 | CP.PCM.CON ---
<Sebastien Charles - Last Filed: 08/29/18 19:32> History of Present Illness - History of Present Illness History of Present Illness: Podiatry progress note for Dr. Gallardo 48 year old male with past medical history of uncontrolled DM, HTN, asthma presenting to ED with worsening b/l lower extremity edema for the past 3- 4 weeks with associated numbness, tingling, and burning sensation. Podiatry consulted for left ingrown toenail, non-infected. Patient states he is an uncontrolled diabetic. He denies checking his blood sugar levels at home No fevers/chills, headaches, dizziness, chest pain, palpitations, abdominal pain, n/v/d/c, dysuria, or changes in stool. 12 pt ROS reviewed and otherwise negative. PMHx: uncontrolled DM, HTN, asthma PSHx: denies Allergies: NKDA Home Meds: reviewed Social Hx: social drinker, + tobacco--1 ppd since age 13, admits to marijuana but no other illicit drug use Review of Systems - Review of Systems All systems: reviewed and no additional remarkable complaints except Review of Systems: As per HPI Past Patient History - Infectious Disease Hx of Infectious Diseases: None - Past Social History Smoking Status: Unknown If Ever Smoked - CARDIAC Hx Cardiac Disorders: Yes Hx Hypertension: Yes - PULMONARY Hx Asthma: Yes - NEUROLOGICAL Hx Neurological Disorder: No - HEENT Hx HEENT Problems: No Hx Blind: No Hx Cataracts: No Hx Deafness: No Hx Difficulty Chewing: No Hx Epistaxis: No Hx Glaucoma: No Hx Macular Degeneration: No - RENAL Hx Chronic Kidney Disease: No Hx Dialysis: No Hx Kidney Stones: No Hx Neurogenic Bladder: No Hx Pyelonephritis: No Hx Renal (Kidney) Cancer: No Hx Renal Failure: No - ENDOCRINE/METABOLIC Hx Diabetes Mellitus Type 2: Yes (uncontrolled) - HEMATOLOGICAL/ONCOLOGICAL Hx Blood Disorders: No - INTEGUMENTARY Hx Dermatological Problems: No Hx Basil Cell: No Hx Eczema: No Hx Melanoma: No Hx Psoriasis: No Hx Squamous Cell: No - MUSCULOSKELETAL/RHEUMATOLOGICAL Hx Musculoskeletal Disorders: No - GASTROINTESTINAL Hx Gastrointestinal Disorders: No - GENITOURINARY/GYNECOLOGICAL Hx Genitourinary Disorders: No Hx Hematuria: No Hx Incontinence: No Hx Prostate Problems: No Hx Sexually Transmitted Disorders: No Hx Urinary Tract Infection: No - PSYCHIATRIC Hx Substance Use: Yes - SURGICAL HISTORY Hx Surgeries: No Hx Amputation: No Hx Appendectomy: No Hx Cardiac Catheterization: No Hx Cholecystectomy: No Hx Coronary Stent: No Hx Gastric Bypass Surgery: No Hx Hysterectomy: No Hx Joint Replacement: No Hx Kidney Transplant: No Hx Liver Transplant: No Hx Mastectomy: No Hx Musculoskeletal Surgery: No Hx Open Heart Surgery: No Hx Orthopedic Surgery: No Hx Splenectomy: No Hx Valve Replacement: No - ANESTHESIA Hx Anesthesia Reactions: No Meds Allergies/Adverse Reactions: Allergies Allergy/AdvReac Type Severity Reaction Status Date / Time No Known Allergies Allergy Verified 08/27/18 17:18 - Medications Medications: Current Medications Aspirin (Aspirin Chewable) 81 mg PO DAILY [facility] Last Admin: 08/29/18 09:45 Dose: 81 mg Carvedilol (Coreg) 12.5 mg PO BID [facility] Last Admin: 08/29/18 17:27 Dose: 12.5 mg Dextrose (Dextrose 50% Inj) 0 ml IV STAT PRN; Protocol PRN Reason: Hypoglycemia Protocol Furosemide (Lasix) 40 mg IVP BID [facility] Last Admin: 08/29/18 17:28 Dose: 40 mg Gabapentin (Neurontin) 600 mg PO TID [facility]; Protocol Last Admin: 08/29/18 17:27 Dose: 600 mg Heparin Sodium (Porcine) (Heparin) 5,000 units SC Q8 [facility]; Protocol Last Admin: 08/29/18 13:50 Dose: 5,000 units Dextrose (Dextrose 5% In Water 1000 Ml) 1,000 mls @ 0 mls/hr IV .Q0M PRN; Protocol PRN Reason: Hypoglycemia Protocol Milrinone Lactate/Dextrose (Primacor 20mg/100ml D5w) 100 mls @ 4.3 mls/hr IV .[id number] [facility]; Protocol Last Admin: 08/29/18 11:29 Dose: Not Given Insulin Human Regular (Humulin R) 0 units SC ACHS [facility]; Protocol Last Admin: 08/29/18 17:25 Dose: 3 unit Lactic Acid (Lac-Hydrin 12% Cream (140 G)) 0 ea TOP Q12 [facility] Last Admin: 08/29/18 11:28 Dose: 1 applic Lisinopril (Zestril) 10 mg PO DAILY [facility] Pantoprazole Sodium (Protonix Ec Tab) 40 mg PO ACB [facility] Last Admin: 08/29/18 08:08 Dose: 40 mg Physical Exam - Constitutional Appears: Well, Non-toxic, No Acute Distress - Head Exam Head Exam: ATRAUMATIC, NORMOCEPHALIC - Extremities Exam Additional comments: Vascular: DP and PT pulses are palpable +2/4 B/L. CFT is brisk to all digits B/L. Skin temperature is warm to warm from proximal to distal B/L. Moderate gross edema noted to the lower extremities. No increase in warmth to any focal area of the lower extremities. No varicosities present B/L. Derm: Nails 2-5 on the left and 1-5 on the right are within normal limits for length, color and thickness. Medial aspect of nail 1 on the left grows medially into the skin. Minimal erythema, no pus, no inflammation, no swelling. Webspaces 1-4 B/L are clean, dry and intact. No breaks in skin or ulcers present B/L. Hyperkeratotic skin noted to the medial aspect of the L first digit. Diffuse pre-ulcerative lesions noted throughout B/L lower leg. Neuro: Gross and light touch sensation intact B/L. Musculoskeletal: +5/5 muscle strength for dorsiflexors, plantarflexors, inverters and everters B/L. ROM is full with passive range of motion of the ankle and STJ B/L, without crepitus and pain. No structural deformities noted B/L. - Neurological Exam Neurological exam: Alert, Oriented x3 - Psychiatric Exam Psychiatric exam: Normal Affect, Normal Mood Results - Vital Signs Recent Vital Signs: Last Vital Signs Temp 97.6 F 08/29/18 12:00 Pulse 112 H 08/29/18 18:00 Resp 19 08/29/18 12:00 BP 183/113 H 08/29/18 17:28 Pulse Ox 95 08/29/18 06:00 - Labs Result Diagrams: 08/29/18 06:10 08/29/18 06:10 Labs: Laboratory Results - last 24 hr 08/28/18 08/28/18 08/29/18 16:12 21:02 06:10 WBC 10.7 RBC 4.68 Hgb 13.4 L Hct 42.0 MCV 89.7 MCH 28.6 MCHC 31.9 RDW 14.4 Plt Count 343 MPV 10.2 Neut % (Auto) 73.6 H Lymph % (Auto) 16.6 L Maries % (Auto) 4.4 Eos % (Auto) 4.7 Baso % (Auto) 0.7 Lymph # (Auto) 1.8 Maries # (Auto) 0.5 Eos # (Auto) 0.5 Baso # (Auto) 0.07 Absolute Neuts (auto) 7.88 H Sodium Potassium Chloride Carbon Dioxide Anion Gap BUN Creatinine Est GFR ( Amer) Est GFR (Non-Af Amer) POC Glucose (mg/dL) 253 H 146 H Random Glucose Calcium Phosphorus Magnesium Total Bilirubin AST ALT Alkaline Phosphatase Total Protein Albumin Globulin Albumin/Globulin Ratio Triglycerides Cholesterol LDL Cholesterol Direct HDL Cholesterol Ur Random Creatinine Ur Random Sodium 08/29/18 08/29/18 08/29/18 06:10 06:10 07:19 WBC RBC Hgb Hct MCV MCH MCHC RDW Plt Count MPV Neut % (Auto) Lymph % (Auto) Maries % (Auto) Eos % (Auto) Baso % (Auto) Lymph # (Auto) Maries # (Auto) Eos # (Auto) Baso # (Auto) Absolute Neuts (auto) Sodium 139 Potassium 3.9 Chloride 102 Carbon Dioxide 31 Anion Gap 11 BUN 28 H Creatinine 2.2 H Est GFR ( Amer) 39 Est GFR (Non-Af Amer) 32 POC Glucose (mg/dL) 248 H Random Glucose 174 H Calcium 8.6 Phosphorus 4.0 Magnesium 1.9 Total Bilirubin 0.4 AST 29 ALT 43 Alkaline Phosphatase 89 Total Protein 6.4 Albumin 3.4 Globulin 3.0 Albumin/Globulin Ratio 1.1 Triglycerides 286 H Cholesterol 181 LDL Cholesterol Direct 113 HDL Cholesterol 31 Ur Random Creatinine Ur Random Sodium 08/29/18 08/29/18 08:37 11:01 WBC RBC Hgb Hct MCV MCH MCHC RDW Plt Count MPV Neut % (Auto) Lymph % (Auto) Maries % (Auto) Eos % (Auto) Baso % (Auto) Lymph # (Auto) Maries # (Auto) Eos # (Auto) Baso # (Auto) Absolute Neuts (auto) Sodium Potassium Chloride Carbon Dioxide Anion Gap BUN Creatinine Est GFR ( Amer) Est GFR (Non-Af Amer) POC Glucose (mg/dL) 123 H Random Glucose Calcium Phosphorus Magnesium Total Bilirubin AST ALT Alkaline Phosphatase Total Protein Albumin Globulin Albumin/Globulin Ratio Triglycerides Cholesterol LDL Cholesterol Direct HDL Cholesterol Ur Random Creatinine 29 Ur Random Sodium 115 Assessment & Plan - Assessment and Plan (Free Text) Assessment: 48 y.o male seen due to complaints of left painful great toenail Plan: Patient seen and evaluated Plan discussed with attending Chart, labs and vitals reviewed Aseptic debridement of all toenails with sterile nippers, patient tolerated well Patient hallucal nail dressed with xeroform, DSD No other podiatric intervention Podiatry will follow patient as needed - Date & Time Date: 08/29/18 Time: 19:40 <Jose Miguel Gallardo - Last Filed: 09/02/18 08:30> Results - Vital Signs Recent Vital Signs: Last Vital Signs Temp 97.8 F 08/30/18 05:52 Pulse 93 H 08/30/18 10:35 Resp 18 08/30/18 05:52 BP 148/95 H 08/30/18 10:35 Pulse Ox 95 08/30/18 05:52 - Labs Result Diagrams: 08/30/18 06:00 08/30/18 06:00 Labs: Laboratory Results - last 24 hr 08/29/18 08/30/18 08/30/18 12:00 06:00 06:00 Albumin (PEP) Sggpm-4-Uovrxbcov Pcodw-6-Ccscinlgz Ufjn-4-Zujmksgd Adxq-3-Gkgghtsg Gamma Globulins Abnorm Protein Band 1 Abnorm Protein Band 2 Abnorm Protein Band 3 DEVI & SPEP Interp Serum Immunofixation Hep Bs Antigen Negative Hep Bs Antibody Hepatitis C Antibody Negative HIV 1&2 Ag/Ab, 4th Gen Blood Type Confirm O POSITIVE 08/30/18 08/30/18 08/30/18 06:00 06:00 06:00 Albumin (PEP) 3.2 L Erekp-0-Vnvujtwer 0.3 Vhnqn-2-Lubwaygap 0.8 Oqpx-4-Vkxlkzxy 0.5 Aeyv-8-Qnvgzrkg 0.5 Gamma Globulins 0.8 Abnorm Protein Band 1 TEST NOT PERFORMED Abnorm Protein Band 2 TEST NOT PERFORMED Abnorm Protein Band 3 TEST NOT PERFORMED DEVI & SPEP Interp See note Serum Immunofixation Not detected Hep Bs Antigen Hep Bs Antibody Negative Hepatitis C Antibody HIV 1&2 Ag/Ab, 4th Gen Nonreactive Blood Type Confirm Attending/Attestation - Attestation I have personally seen and examined this patient.: Yes I have fully participated in the care of the patient.: Yes I have reviewed all pertinent clinical information: Yes
--- NOTE | 2018-08-30 02:11 | CON ---
DATE: 08/29/2018 LOCATION: [facility]. NEPHROLOGY CONSULTATION HISTORY OF PRESENT ILLNESS: The patient is a 48-year-old male with past medical history of hypertension, diabetes, asthma, presented to ED 2 days ago with worsening bilateral lower leg edema, nephrology being consulted for renal insufficiency. The patient reports the above symptoms as well as associated dyspnea on climbing stairs since the past one week, denies any change in urination, reports being adherent to his medication regimen. The patient does admit to drinking a lot of soda and eats out frequently; the patient, otherwise, denies any history of any renal insufficiency. PAST MEDICAL HISTORY: As above. Has had admissions with uncontrolled blood sugar previously. FAMILY HISTORY: Father with heart condition, mother with breast cancer. SOCIAL HISTORY: Current smoker. REVIEW OF SYSTEMS: CONSTITUTIONAL: Denies any fevers or chills. HEENT: Reports blurry vision on left status post laser surgery. RESPIRATORY: Reports getting up at night, gasping for air. GI: No nausea or vomiting. : No dysuria. MUSCULOSKELETAL: Denies any arthralgias or back pain. NEURO: Reports burning in feet, thinks he was on Neurontin, does not take any other pain medications. SKIN: The patient reporting pruritus of bilateral lower legs. PSYCHIATRIC: Had U-tox positive for cocaine previously. PHYSICAL EXAMINATION: VITAL SIGNS: Blood pressure 184/114, heart rate 96, respirations 19, temperature 97.6, O2 sat 95% on room air. GENERAL: No distress, conversing coherently in full sentences. HEENT: Moist mucous membranes. Nonicteric. No cervical lymphadenopathy. No elevation in JVD. RESPIRATORY: Lungs are clear to auscultation bilaterally. No rales, no rhonchi, no wheezes. CARDIOVASCULAR: Heart sounds, S1, S2 normal. No murmurs, no gallops, no rubs. GI: Abdomen soft, nontender, nondistended. : No bladder distention. EXTREMITIES: 2 to 3+ bilateral lower leg edema. SKIN: Warm hands, no cyanosis, excoriation noted in bilateral lower legs. PSYCHIATRIC: Normal mood, normal affect. NEURO: No resting tremor. LABORATORY DATA: CBC: WBC 10.7, hemoglobin 13.4, hematocrit 42, platelets 343. Chemistry panel: Sodium 139, potassium 3.9, chloride 102, bicarb 31, BUN 28, creatinine 2.2, glucose 174, calcium 8.6, phosphorous 4, magnesium 1.9, AST 29, ALT 43, albumin 3.4. Urine studies: UA 100 mg/dL, albumin small blood, 2-5 RBC's, 5-10 WBC's per high-powered field. U-tox positive for cocaine. Chest x-ray directly visualized showing some pulmonary vascular congestion. Abdominal ultrasound directly visualized, no hydronephrosis of either kidney, relatively normal renal echogenicity. Echo report mentioning severe systolic dysfunction and impaired RV systolic function. ASSESSMENT AND PLAN: 1. Renal insufficiency, likely progression of chronic kidney disease, with the patient having 1.8 g proteinuria on 24-hour collection done approximately 1-1/2 years ago. The patient has a history of severely uncontrolled blood sugars with hemoglobin A1c of approximately 15 just 1-1/2 years ago; otherwise, stable electrolytes. We will obtain workup for proteinuric chronic kidney disease to rule out other possible etiologies, obtaining random urine for total protein and creatinine to look for evidence of nephrotic syndrome. The patient counseled on need for strict glycemic control. Avoid nephrotoxic agents (non-steroidal anti-inflammatory drugs, phosphate enema). 2. Acute decompensated systolic congestive heart failure. The patient with new onset cardiomyopathy compared to echo from 1-1/2 years ago that showed normal ejection fraction; currently getting IV Lasix 40 mg every 12 hours and on milrinone drip, agree with current management. 3. Hypertensive chronic kidney disease, blood pressure uncontrolled; agree with starting Coreg 12.5 mg p.o. b.i.d., okay to restart lisinopril at 10 mg daily; will likely need additional agent. Thank you for this referral. We will be following up closely. Enoc Wiley MD
[2018-08-30] MEDS: Milrinone 20mg/100ml D5W 100 ML IV SCH (03:49)
[2018-08-30 05:55] VITALS: BP 148/95; RESP 18; TEMP 97.8; O2SAT 95
[2018-08-30 06:59] LABS: BASO # 0.07 K/mm3 (0.0-2.0); BASO % 0.6 % (0.0-3.0); EOS # 0.5 (0.0-0.7); EOS % 3.9 % (1.5-5.0); HEMOGLOBIN 13.1 g/dL (14.0-18.0); LYMPH # 1.7 (1.2-3.4); LYMPH % 13.9 % (22.0-35.0); MEAN CORPUSCULAR HEMOGLOBIN 28.5 pg (25.0-35.0); MEAN CORPUSCULAR HGB CONC 31.6 g/dl (31.0-37.0); MEAN PLATELET VOLUME 10.1 fl (7.0-11.0); MONO # 0.6 (0.1-0.6); RBC 4.6 10^6/uL (3.5-6.1); RED CELL DISTRIBUTION WIDTH 14.3 % (11.5-14.5); WHITE BLOOD COUNT 11.9 10^3/uL (4.5-11.0)
[2018-08-30 07:26] LABS: ALB/GLOB RATIO 1.1 (1.1-1.8); ALBUMIN 3.4 g/dL (3.0-4.8); ALT/SGPT 28 U/L (7-56); AST/SGOT 26 U/L (17-59); BLOOD UREA NITROGEN 38 mg/dL (7-21); CALCIUM 8.8 mg/dL (8.4-10.5); GFR NON-AFRICAN AMERICAN 29
[2018-08-30] MEDS: Insulin Regular 1 UNITS/0.01 ML ML SC SCH (08:29)
[2018-08-30] MEDS: Pantoprazole 40 mg EC Tab PO SCH (08:33)
[2018-08-30] MEDS ORDERED: Mupirocin 2% Ointment 15 GM TUBE TOP SCH (10:00)
[2018-08-30] MEDS: Ammonium Lactate 12% Cream (140 g) TOP SCH (10:36)
[2018-08-30 10:38] VITALS: PULSE 93
--- NOTE | 2018-08-30 11:29 | CP.PCM.DIS ---
<Nelia Parr - Last Filed: 08/30/18 11:24> Provider - Provider Date of Admission: 08/27/18 19:38 Attending physician: Nidia Aponte MD Primary care physician: NO PRIMARY CARE PROVIDER Consults: 08/28/18 01:08 Cardiology Consult Routine Comment: Consulting Provider: Sunday Velez Consulting Physician: Sunday Velez Reason for Consult: worsening b/l leg edema, hope, orthopnea 08/28/18 09:55 Diabetic Education Referral Routine Comment: Physician Instructions: Reason For Exam: diabetes, insulin use, accuchecks 08/28/18 09:56 Podiatry Consult Routine Comment: Consulting Provider: Cheri Urbano Consulting Physician: Cheri Urbano Reason for Consult: diabetic ulcers 08/29/18 10:35 Physician Consult Routine Comment: Consulting Provider: Enoc Wiley Consulting Physician: Enoc Wiley Reason for Consult: YISSEL Time Spent in preparation of Discharge (in minutes): 45 Diagnosis - Discharge Diagnosis (1) Hypertensive emergency Status: Resolved (2) CHF (congestive heart failure) Status: Chronic (3) Cocaine abuse Status: Resolved (4) Diabetes mellitus Status: Chronic (5) Diabetic neuropathy Status: Chronic (6) Hypertension Status: Chronic Hospital Course - Lab Results Lab Results: Micro Results 08/27/18 20:00 Urine,Clean Catch Urine Culture - Final No Growth (<1,000 CFU/ML) Most Recent Lab Values WBC 11.9 10^3/uL (4.5-11.0) H 08/30/18 06:00 RBC 4.60 10^6/uL (3.5-6.1) 08/30/18 06:00 Hgb 13.1 g/dL (14.0-18.0) L 08/30/18 06:00 Hct 41.4 % (42.0-52.0) L 08/30/18 06:00 MCV 90.0 fl (80.0-105.0) 08/30/18 06:00 MCH 28.5 pg (25.0-35.0) 08/30/18 06:00 MCHC 31.6 g/dl (31.0-37.0) 08/30/18 06:00 RDW 14.3 % (11.5-14.5) 08/30/18 06:00 Plt Count 343 10^3/uL (120.0-450.0) 08/30/18 06:00 MPV 10.1 fl (7.0-11.0) 08/30/18 06:00 Neut % (Auto) 76.6 % (50.0-68.0) H 08/30/18 06:00 Lymph % (Auto) 13.9 % (22.0-35.0) L 08/30/18 06:00 Bee % (Auto) 5.0 % (1.0-6.0) 08/30/18 06:00 Eos % (Auto) 3.9 % (1.5-5.0) 08/30/18 06:00 Baso % (Auto) 0.6 % (0.0-3.0) 08/30/18 06:00 Lymph # (Auto) 1.7 (1.2-3.4) 08/30/18 06:00 Bee # (Auto) 0.6 (0.1-0.6) 08/30/18 06:00 Eos # (Auto) 0.5 (0.0-0.7) 08/30/18 06:00 Baso # (Auto) 0.07 K/mm3 (0.0-2.0) 08/30/18 06:00 Absolute Neuts (auto) 9.10 (1.4-6.5) H 08/30/18 06:00 PT 10.8 SECONDS (9.4-12.5) 08/27/18 17:55 INR 0.97 08/27/18 17:55 APTT 33.0 Seconds (26.9-38.3) 08/27/18 17:55 Sodium 139 mmol/L (132-148) 08/30/18 06:00 Potassium 4.3 mmol/L (3.6-5.0) 08/30/18 06:00 Chloride 100 mmol/L (98-107) 08/30/18 06:00 Carbon Dioxide 33 mmol/L (21-33) 08/30/18 06:00 Anion Gap 11 (10-20) 08/30/18 06:00 BUN 38 mg/dL (7-21) H 08/30/18 06:00 Creatinine 2.4 mg/dl (0.8-1.5) H 08/30/18 06:00 Est GFR ( Amer) 35 08/30/18 06:00 Est GFR (Non-Af Amer) 29 08/30/18 06:00 POC Glucose (mg/dL) 236 mg/dL (65-110) H 08/30/18 07:37 Random Glucose 245 mg/dL (70-110) H 08/30/18 06:00 Hemoglobin A1c 7.7 % (4.2-6.5) H 08/27/18 20:00 Calcium 8.8 mg/dL (8.4-10.5) 08/30/18 06:00 Phosphorus 4.0 mg/dL (2.5-4.5) 08/30/18 06:00 Magnesium 2.6 mg/dL (1.7-2.2) H 08/30/18 06:00 Total Bilirubin 0.3 mg/dL (0.2-1.3) 08/30/18 06:00 AST 26 U/L (17-59) 08/30/18 06:00 ALT 28 U/L (7-56) 08/30/18 06:00 Alkaline Phosphatase 81 U/L (38-126) 08/30/18 06:00 Total Creatine Kinase 184 U/L (35-230) 08/27/18 17:55 Troponin I 0.07 ng/mL 08/27/18 17:55 NT-Pro-B Natriuret Pep 5460 pg/mL (0-450) H 08/27/18 17:55 Total Protein 6.3 g/dL (5.8-8.3) 08/30/18 06:00 Albumin 3.4 g/dL (3.0-4.8) 08/30/18 06:00 Globulin 2.9 gm/dL 08/30/18 06:00 Albumin/Globulin Ratio 1.1 (1.1-1.8) 08/30/18 06:00 Triglycerides 286 mg/dL (35-160) H 08/29/18 06:10 Cholesterol 181 mg/dL (130-200) 08/29/18 06:10 LDL Cholesterol Direct 113 mg/dL (0-129) 08/29/18 06:10 HDL Cholesterol 31 mg/dL (29-60) 08/29/18 06:10 TSH 3rd Generation 1.29 mIU/mL (0.46-4.68) 08/27/18 17:55 Urine Color Yellow (YELLOW) 08/27/18 18:40 Urine Appearance Clear (CLEAR) 08/27/18 18:40 Urine pH 6.5 (4.7-8.0) 08/27/18 18:40 Ur Specific Lutz 1.025 (1.005-1.035) 08/27/18 18:40 Urine Protein 100 mg/dL (<30 mg/dL) H 08/27/18 18:40 Urine Glucose (UA) Negative mg/dL (NEGATIVE) 08/27/18 18:40 Urine Ketones Negative mg/dL (NEGATIVE) 08/27/18 18:40 Urine Blood Small (NEGATIVE) H 08/27/18 18:40 Urine Nitrate Negative (NEGATIVE) 08/27/18 18:40 Urine Bilirubin Negative (NEGATIVE) 08/27/18 18:40 Urine Urobilinogen 0.2 E.U./dL (<1 E.U./dL) 08/27/18 18:40 Ur Leukocyte Esterase Negative Anant/uL (NEGATIVE) 08/27/18 18:40 Urine RBC 2 - 5 /hpf (0-2) H 08/27/18 18:40 Urine WBC 5 - 10 /hpf (0-6) H 08/27/18 18:40 Ur Epithelial Cells 3 - 4 /hpf (0-5) 08/27/18 18:40 Urine Bacteria Few /hpf (NONE) 08/27/18 18:40 Ur Random Creatinine 29 mg/dL 08/29/18 08:37 Ur Random Sodium 115 meq/L 08/29/18 08:37 Ur Random Potassium 17.3 meq/L 08/28/18 04:10 Urine Opiates Screen Negative (NEGATIVE) 08/28/18 04:10 Urine Methadone Screen Negative (NEGATIVE) 08/28/18 04:10 Ur Barbiturates Screen Negative (NEGATIVE) 08/28/18 04:10 Ur Phencyclidine Scrn Negative (NEGATIVE) 08/28/18 04:10 Ur Amphetamines Screen Negative (NEGATIVE) 08/28/18 04:10 U Benzodiazepines Scrn Negative (NEGATIVE) 08/28/18 04:10 U Oth Cocaine Metabols Positive (NEGATIVE) H 08/28/18 04:10 U Cannabinoids Screen Negative (NEGATIVE) 08/28/18 04:10 Alcohol, Quantitative < 10 mg/dL (0-10) 08/27/18 17:55 Blood Type O POSITIVE 08/27/18 18:31 Antibody Screen Negative 08/27/18 18:31 Antibody Identification Negative Panel 08/27/18 18:31 LACI, Poly Interpret Negative (NEGATIVE) 08/27/18 18:31 BBK History Checked No verified bt 08/27/18 18:31 - Hospital Course Hospital Course: Upon Admission: 48 year old male with past medical history of uncontrolled DM, HTN, asthma presenting to ED with worsening b/l lower extremity edema for the past 3- 4 weeks with associated numbness, tingling, and burning sensation. He comes in now for evaluation because burning sensation and swelling has been too much to tolerate. He also endorses pruritis to his anterior shins bilaterial, with multiple excoriations/ulcerations noted to his lower limbs. Patient admits to increased scratching due to itching, also states some findings are due to easy bruising. Patient also endorses intermittent blurry vision and polyuria. He denies checking his blood sugar levels at home but states that they were michelle vated the last time he went to see his doctor a few months ago. Patient also endorses shortness of breath with exertion, particularly when climbing up flights of stairs, as well as orthopnea. He denies ever seeing a transport manager or having a cardiologic workup. Hospital Course: Pt was found to be hypertensive initially with BP of 201/122. He was given labetalol in ED with response. On PE, pt has b/l LE edema with ulcerations. He had no JVD, rales on lung exam, pt had already received lasix in ED. Labs revealed BUN/Cr of 22/2.1, AST/ALT 73/57. His Pro BNP Was 5460. U tox was positive for cocaine. Cardiology & nephrology were consulted. Pt was started on Lasix IVP bid and milrinone drip by cardiology. Pt was also started on ACEi, ASA, statin & b-isak. Podiatry was evaluated for chronic foot/leg ulcers. 1 dose rocephin was given for empiric coverage of soft tissue infection. Diabetic nurse and tube coremaker educated patient. Thorough conversation was had with patient regarding cessation of drugs, tobacco and alcohol. Pts clinical status had improved. Milrinone was discontinued by cardiology. Pt symptoms had resolved. CXR: moderate cardiomegaly with mild vascular congestion LE DVT: No sonographic evidence for deep venous thrombosis in the visualized segments of both lower extremities. Abd U/S: No significant or acute findings to account for/ related to the clinical presentation. Echo: The left ventricle is normal size.There is moderate to severe concentric left ventricular hypertrophy.The systolic function is severely impaired.There is global hypokinesis of the left ventricle.No left ventricle thrombus noted on this study.RV Systolic function is severely reduced. Mitral regurgitation is mild to moderate. There is mild tricuspid regurgitation. There is a small pericardial effusion. LVEF 35% EKG: NSR Upon Discharge: Pt feels better, symptoms have resolved. Vital signs stable, labs stable. Pt to be discharged with followup with PMD, cardiology, nephrology. Pt was educated on diabetes, medications used for diabetes, insulin use and oral antihyperglycemics. Pt was educated, in detail, about risks benefits and alternatives for several diabetic medications including metformin, glipizide and insulin. Pt is not a candidate for metformin due to his renal insufficiency. Pt was refusing insulin treatment several times despite education. Pt educated that he will be started on oral glipizide. Pt was educated to avoid NSAIDS, metformin and other nephrotoxic medications. Pt counselled on cessation of tobacco/alcohol/cocaine and other illicit drugs. Prescriptions given included: aspirin 81mg atorvastatin 40mg carvedilol 12.5mg lasix 40mg bid glipizide 5mg lisinopril 10mg Discharge Exam - Head Exam Head Exam: ATRAUMATIC, NORMOCEPHALIC - Eye Exam Eye Exam: EOMI, Normal appearance - ENT Exam ENT Exam: Normal Exam - Neck Exam Neck exam: Normal Inspection - Respiratory Exam Respiratory Exam: NORMAL BREATHING PATTERN, UNREMARKABLE - Cardiovascular Exam Cardiovascular Exam: REGULAR RHYTHM, +S1, +S2 - GI/Abdominal Exam GI & Abdominal Exam: Soft. absent: Tenderness - Extremities Exam Additional comments: chronic ulcers - Neurological Exam Neurological exam: Alert, Oriented x3 - Psychiatric Exam Psychiatric exam: Normal Affect, Normal Mood - Skin Skin Exam: Dry, Intact, Warm Discharge Plan - Discharge Medications Prescriptions: Aspirin [Aspirin Chewable] 81 mg PO DAILY #14 chew Atorvastatin [Lipitor] 40 mg PO DAILY #14 tab Carvedilol [Coreg] 12.5 mg PO BID #28 tab Furosemide [Lasix] 40 mg PO BID #28 tab GlipiZIDE [Glucotrol] 5 mg PO DAILY #14 tab Lisinopril [Zestril] 10 mg PO DAILY #14 tab - Follow Up Plan Condition: STABLE Disposition: HOME/ ROUTINE Instructions: Heart Healthy Diet, Heart Failure, Adult (DC), Diabetes Diet , Low Salt Diet, Heart Failure (DC), Heart Failure (GEN), Pacemaker (DC), Pacemaker (GEN), Pulmonary Edema (DC), Pulmonary Edema (GEN), Ascites (DC), Ascites (GEN) Additional Instructions: Please follow up with your primary care doctor with 3-5 days of discharge from the hospital Please follow up with your transport manager, Dr. Velez, within 1 week of discharge Please follow up with your [employer] (kidney doctor), Dr. Wiley, within 1 week of discharge Please avoid using metformin, NSAIDS due to renal failure. 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 Urbano within 1 week of discharge Please take your medications as directed. Please comply with medications, and ask your doctors if you have any questions Please stop using cocaine. Please avoid any other illicit drugs. If your symptoms return, or your experience new symptoms, please return to the nearest emergency room Referrals: Rufus Holland MD [Medical Doctor] - Cheri Urbano DPM [Staff Provider] - Enoc Wiley MD [Staff Provider] - Sunday Velez MD [Staff Provider] - <Nidia Aponte - Last Filed: 08/30/18 14:25> Provider - Provider Date of Admission: 08/27/18 19:38 Attending physician: Nidia Aponte MD Primary care physician: NO PRIMARY CARE PROVIDER Consults: 08/28/18 01:08 Cardiology Consult Routine Comment: Consulting Provider: Sunday Velez Consulting Physician: Sunday Velez Reason for Consult: worsening b/l leg edema, hope, orthopnea 08/28/18 09:55 Diabetic Education Referral Routine Comment: Physician Instructions: Reason For Exam: diabetes, insulin use, accuchecks 08/28/18 09:56 Podiatry Consult Routine Comment: Consulting Provider: Cheri Urbano Consulting Physician: Cheri Urbano Reason for Consult: diabetic ulcers 08/29/18 10:35 Physician Consult Routine Comment: Consulting Provider: Enoc Wiley Consulting Physician: Enoc Wiley Reason for Consult: YISSEL Hospital Course - Lab Results Lab Results: Micro Results 08/27/18 20:00 Urine,Clean Catch Urine Culture - Final No Growth (<1,000 CFU/ML) Most Recent Lab Values WBC 11.9 10^3/uL (4.5-11.0) H 08/30/18 06:00 RBC 4.60 10^6/uL (3.5-6.1) 08/30/18 06:00 Hgb 13.1 g/dL (14.0-18.0) L 08/30/18 06:00 Hct 41.4 % (42.0-52.0) L 08/30/18 06:00 MCV 90.0 fl (80.0-105.0) 08/30/18 06:00 MCH 28.5 pg (25.0-35.0) 08/30/18 06:00 MCHC 31.6 g/dl (31.0-37.0) 08/30/18 06:00 RDW 14.3 % (11.5-14.5) 08/30/18 06:00 Plt Count 343 10^3/uL (120.0-450.0) 08/30/18 06:00 MPV 10.1 fl (7.0-11.0) 08/30/18 06:00 Neut % (Auto) 76.6 % (50.0-68.0) H 08/30/18 06:00 Lymph % (Auto) 13.9 % (22.0-35.0) L 08/30/18 06:00 Bee % (Auto) 5.0 % (1.0-6.0) 08/30/18 06:00 Eos % (Auto) 3.9 % (1.5-5.0) 08/30/18 06:00 Baso % (Auto) 0.6 % (0.0-3.0) 08/30/18 06:00 Lymph # (Auto) 1.7 (1.2-3.4) 08/30/18 06:00 Bee # (Auto) 0.6 (0.1-0.6) 08/30/18 06:00 Eos # (Auto) 0.5 (0.0-0.7) 08/30/18 06:00 Baso # (Auto) 0.07 K/mm3 (0.0-2.0) 08/30/18 06:00 Absolute Neuts (auto) 9.10 (1.4-6.5) H 08/30/18 06:00 PT 10.8 SECONDS (9.4-12.5) 08/27/18 17:55 INR 0.97 08/27/18 17:55 APTT 33.0 Seconds (26.9-38.3) 08/27/18 17:55 Sodium 139 mmol/L (132-148) 08/30/18 06:00 Potassium 4.3 mmol/L (3.6-5.0) 08/30/18 06:00 Chloride 100 mmol/L (98-107) 08/30/18 06:00 Carbon Dioxide 33 mmol/L (21-33) 08/30/18 06:00 Anion Gap 11 (10-20) 08/30/18 06:00 BUN 38 mg/dL (7-21) H 08/30/18 06:00 Creatinine 2.4 mg/dl (0.8-1.5) H 08/30/18 06:00 Est GFR ( Amer) 35 08/30/18 06:00 Est GFR (Non-Af Amer) 29 08/30/18 06:00 POC Glucose (mg/dL) 236 mg/dL (65-110) H 08/30/18 07:37 Random Glucose 245 mg/dL (70-110) H 08/30/18 06:00 Hemoglobin A1c 7.7 % (4.2-6.5) H 08/27/18 20:00 Calcium 8.8 mg/dL (8.4-10.5) 08/30/18 06:00 Phosphorus 4.0 mg/dL (2.5-4.5) 08/30/18 06:00 Magnesium 2.6 mg/dL (1.7-2.2) H 08/30/18 06:00 Total Bilirubin 0.3 mg/dL (0.2-1.3) 08/30/18 06:00 AST 26 U/L (17-59) 08/30/18 06:00 ALT 28 U/L (7-56) 08/30/18 06:00 Alkaline Phosphatase 81 U/L (38-126) 08/30/18 06:00 Total Creatine Kinase 184 U/L (35-230) 08/27/18 17:55 Troponin I 0.07 ng/mL 08/27/18 17:55 NT-Pro-B Natriuret Pep 5460 pg/mL (0-450) H 08/27/18 17:55 Total Protein 6.3 g/dL (5.8-8.3) 08/30/18 06:00 Albumin 3.4 g/dL (3.0-4.8) 08/30/18 06:00 Globulin 2.9 gm/dL 08/30/18 06:00 Albumin/Globulin Ratio 1.1 (1.1-1.8) 08/30/18 06:00 Triglycerides 286 mg/dL (35-160) H 08/29/18 06:10 Cholesterol 181 mg/dL (130-200) 08/29/18 06:10 LDL Cholesterol Direct 113 mg/dL (0-129) 08/29/18 06:10 HDL Cholesterol 31 mg/dL (29-60) 08/29/18 06:10 TSH 3rd Generation 1.29 mIU/mL (0.46-4.68) 08/27/18 17:55 Urine Color Yellow (YELLOW) 08/27/18 18:40 Urine Appearance Clear (CLEAR) 08/27/18 18:40 Urine pH 6.5 (4.7-8.0) 08/27/18 18:40 Ur Specific Lutz 1.025 (1.005-1.035) 08/27/18 18:40 Urine Protein 100 mg/dL (<30 mg/dL) H 08/27/18 18:40 Urine Glucose (UA) Negative mg/dL (NEGATIVE) 08/27/18 18:40 Urine Ketones Negative mg/dL (NEGATIVE) 08/27/18 18:40 Urine Blood Small (NEGATIVE) H 08/27/18 18:40 Urine Nitrate Negative (NEGATIVE) 08/27/18 18:40 Urine Bilirubin Negative (NEGATIVE) 08/27/18 18:40 Urine Urobilinogen 0.2 E.U./dL (<1 E.U./dL) 08/27/18 18:40 Ur Leukocyte Esterase Negative Anant/uL (NEGATIVE) 08/27/18 18:40 Urine RBC 2 - 5 /hpf (0-2) H 08/27/18 18:40 Urine WBC 5 - 10 /hpf (0-6) H 08/27/18 18:40 Ur Epithelial Cells 3 - 4 /hpf (0-5) 08/27/18 18:40 Urine Bacteria Few /hpf (NONE) 08/27/18 18:40 Ur Random Creatinine 29 mg/dL 08/29/18 08:37 Ur Random Sodium 115 meq/L 08/29/18 08:37 Ur Random Potassium 17.3 meq/L 08/28/18 04:10 Urine Opiates Screen Negative (NEGATIVE) 08/28/18 04:10 Urine Methadone Screen Negative (NEGATIVE) 08/28/18 04:10 Ur Barbiturates Screen Negative (NEGATIVE) 08/28/18 04:10 Ur Phencyclidine Scrn Negative (NEGATIVE) 08/28/18 04:10 Ur Amphetamines Screen Negative (NEGATIVE) 08/28/18 04:10 U Benzodiazepines Scrn Negative (NEGATIVE) 08/28/18 04:10 U Oth Cocaine Metabols Positive (NEGATIVE) H 08/28/18 04:10 U Cannabinoids Screen Negative (NEGATIVE) 08/28/18 04:10 Alcohol, Quantitative < 10 mg/dL (0-10) 08/27/18 17:55 Complement C3 116.0 mg/dL (88.0-165.0) 08/30/18 06:00 Complement C4 31.8 mg/dL (14.0-44.0) 08/30/18 06:00 Blood Type O POSITIVE 08/27/18 18:31 Antibody Screen Negative 08/27/18 18:31 Antibody Identification Negative Panel 08/27/18 18:31 LACI, Poly Interpret Negative (NEGATIVE) 08/27/18 18:31 BBK History Checked No verified bt 08/27/18 18:31 Attending/Attestation - Attestation I have personally seen and examined this patient.: Yes I have fully participated in the care of the patient.: Yes I have reviewed all pertinent clinical information, including history, physical exam and plan: Yes Notes (Text): Attending note; Patient seen and examined with resident. Patient is walking in the hallway. Refused insulin. Refused to check fingersticks at home. Being abusive to nursing staff and dietary. Refused to listen to reasoning. Denies any fevers, chills. Leg swelling is improving slowly. Shortness of breath improved. Currently on a milrinone drip. Patient is a 48-year-old male with PMH of uncontrolled DM2, HTN, asthma, cocaine abuse presents to ED with complaints of b/l LE edema, ulceration, dyspnea on exertion. 1. Acute systolic congestive heart failure; patient is currently on IV Lasix. On IV milrinone drip. Cardiology evaluation appreciated. Drip discontinued. 2. Cardiomyopathy; ejection fraction is 35%. Continue aspirin, Coreg. Started on lisinopril. 3. acute Renal insufficiency; baseline creatinine not known. 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 Nephrology Evaluation requested. Needs close follow-up with nephrology as outpatient. 4. Active smoking; smoking cessation is strongly advised . 5. Alcohol abuse; alcohol cessation is strongly advised . 6. Active cocaine abuse; drug abuse cessation is strongly advised. 7. Lower extremity edema; resolved. Patient also has multiple diabetic skin lesions. Podiatry evaluation appreciated.. IV Rocephin ordered. 8. diabetes; continue regular insulin sliding scale. Metformin on hold. Dietary education given . Diabetic nurse education given. Patient educated multiple times that he cannot take metformin secondary to renal insufficiency. Started on glipizide. Patient refused to check blood sugar at home. Refused insulin injection in hospital. Patient was cleared by cardiology for discharge. Upon discharge the patient needs close follow-up with PMD and cardiology. Patient also needs nephrology follow-up. Diagnosis, follow-up plan discussed with patient in detail. Medication compliance Insisted in detail. Prognosis is poor secondary to noncompliance with follow-up, continues smoking, alcohol and drug abuse and behavioral issues.
[2018-08-30 11:32] LABS: COMPLEMENT C4 31.8 mg/dL (14.0-44.0)
--- NOTE | 2018-08-30 11:52 | PN ---
DATE: 08/30/2018 REASON FOR CONSULTATION AND FOLLOWUP: Decompensated congestive heart failure, [id number] secondary systolic dysfunction. REASON FOR DICTATION: Covering Dr. Sunday Velez. SUBJECTIVE: The patient denies any chest pain, shortness of breath any palpitation wanted to go home. PHYSICAL EXAMINATION: VITAL SIGNS: Temperature afebrile. Heart rate 97 and blood pressure 132/72. HEENT: PERRLA. Extraocular muscles intact. NECK: Supple. No carotid bruits. No thyromegaly. CHEST: Clear to auscultation. HEART: S1 and S2, regular. ABDOMEN: Soft. EXTREMITIES: Clubbing and cyanosis negative. LABORATORY DATA: WBC 11.9, hemoglobin 13, hematocrit 41.4 and platelet count 343. Chemistry shows sodium 139, potassium 3.4, chloride 100, carbon dioxide 33, anion gap of 11, BUN 38 and creatinine 2.4. IMPRESSION: A 48-year-old male with past medical history significant for diabetes, hypertension, hyperlipidemia, admitted with acute left anterior ascending decompensated congestive heart failure secondary to systolic dysfunction. Recent echo dated 08/28/2018 revealed ejection fraction severely impaired. Global hypokinesis left ventricle, right ventricle functions severely reduced, mild to moderate mitral regurgitation, mild tricuspid regurgitation, small pericardial effusion. The patient is being treated with IV Primacor. Now the patient appears to be compensated history of chronic obstructive pulmonary disease, diabetes, history of renal insufficiency. RECOMMENDATION: Discontinue IV Primacor, change Lasix to p.o. Continue Coreg. Continue marc-inhibitors. Change Lasix to p.o. and we will start Lasix p.o. We will follow with you. Thank you Dr. Aponte for providing us the opportunity in taking care of the patient, Reza Arteaga. We will follow. Also consider if the patient can afford Entresto lisinopril, but needs to be 48 hours off lisinopril before he start Entresto is a wash out. We will transfer care to Dr. Sunday Velez tomorrow if the patient hospital. Lovely Betts MD [facility] # [id number]
--- NOTE | 2018-08-30 16:45 | CP.PCM.PN ---
Objective - Vital Signs/Intake and Output Vital Signs (last 24 hours): Temp Pulse Resp BP Pulse Ox 97.8 F 93 H 18 148/95 H 95 08/30/18 05:52 08/30/18 10:35 08/30/18 05:52 08/30/18 10:35 08/30/18 05:52 Intake and Output: 08/30/18 08/30/18 06:59 18:59 Intake Total 1843 Balance 1843 - Labs Labs: 08/30/18 06:00 08/30/18 06:00 PT 10.8 SECONDS (9.4-12.5) 08/27/18 17:55 INR 0.97 08/27/18 17:55 APTT 33.0 Seconds (26.9-38.3) 08/27/18 17:55
[2018-09-01 09:00] LABS: HEPATITIS B SURFACE AG Negative (NEGATIVE)
[2018-09-02 05:53] LABS: ALBUMIN (PEP) 3.2 g/dL (3.8-4.8); ALPHA-1-GLOBULIN (PEP) 0.3 g/dL (0.2-0.3)
== END 2018-08-30 11:22 | disposition home or self-care (01) | DRG 544 ==
LOC: ED 15:59 → ERH 19:38 → 2RNO 21:19
PROVIDERS: ADMIT Internal Medicine; ATTEND Internal Medicine
DX: I13.0 Hypertensive heart and chronic kidney disease with heart failure and stage 1 through stage 4 chronic kidney disease, or unspecified chronic kidney disease (principal); I50.23 Acute on chronic systolic (congestive) heart failure; N17.9 Acute kidney failure, unspecified; E11.22 Type 2 diabetes mellitus with diabetic chronic kidney disease; N18.9 Chronic kidney disease, unspecified; E11.40 Type 2 diabetes mellitus with diabetic neuropathy, unspecified; F14.10 Cocaine abuse, uncomplicated; I42.0 Dilated cardiomyopathy; J44.9 Chronic obstructive pulmonary disease, unspecified; I08.1 Rheumatic disorders of both mitral and tricuspid valves; E11.622 Type 2 diabetes mellitus with other skin ulcer; L97.929 Non-pressure chronic ulcer of unspecified part of left lower leg with unspecified severity; L97.919 Non-pressure chronic ulcer of unspecified part of right lower leg with unspecified severity; I16.1 Hypertensive emergency; E11.65 Type 2 diabetes mellitus with hyperglycemia; E78.5 Hyperlipidemia, unspecified; F10.10 Alcohol abuse, uncomplicated; F17.200 Nicotine dependence, unspecified, uncomplicated; L60.0 Ingrowing nail; I31.3 Pericardial effusion (noninflammatory); L29.9 Pruritus, unspecified; Z79.84 Long term (current) use of oral hypoglycemic drugs; Z91.19 Patient's noncompliance with other medical treatment and regimen; Z80.3 Family history of malignant neoplasm of breast